=== PATIENT | male | born 1950 | race Hispanic/Latino ===

== ENCOUNTER → 2017-07-16 | Outpatient (CLI) | payer OTHER ==
[~2017-07-16] MED LIST: CRESTOR20 MG PO
--- NOTE | 2017-07-17 10:24 | Cardiology Report ---
DATE OF STUDY: July 16, 2017 DOPPLER SCAN OF LEFT LEG VEINS The left leg veins were interrogated using the duplex scanning method. The veins were compressible. There were no definite deep venous thrombosis. CONCLUSIONS 1. No definite deep venous thrombosis involving the left leg veins. 2. The right leg was not studied. Job#: [id number] RI cc:CRISTIANO MCKNIGHT MD
== END ==
LOC: RAD 09:49
PROVIDERS: ATTEND Family Medicine
DX: M79.605 Pain in left leg (principal)
CPT/HCPCS: 93971